=== PATIENT | male | born 1985 | race Caucasian/White ===

== ENCOUNTER 2020-11-23 10:09 | Outpatient (REF) | payer OTHER, SELFPAY | END 2020-11-23 10:10 | disposition home or self-care (01) | LOC: HO.BBR 10:09 | PROVIDERS: Visit Provider Internal Medicine Hematology | DX: Z13.89 Encounter for screening for other disorder (principal) ==

== ENCOUNTER 2020-12-28 14:52 | Outpatient (REF) | payer OTHER, SELFPAY | END 2020-12-28 14:53 | disposition home or self-care (01) | LOC: HO.BBR 14:52 | PROVIDERS: Visit Provider Internal Medicine Hematology | DX: Z13.89 Encounter for screening for other disorder (principal) ==

== ENCOUNTER 2021-02-08 08:51 | Outpatient (REF) | payer OTHER, SELFPAY | END 2021-02-08 08:52 | disposition home or self-care (01) | LOC: HO.BBR 08:51 | PROVIDERS: Visit Provider Internal Medicine Hematology | DX: Z13.89 Encounter for screening for other disorder (principal) ==

== ENCOUNTER 2022-05-07 11:02 | Outpatient (REF) | payer OTHER, SELFPAY | END 2022-05-07 11:03 | disposition home or self-care (01) | LOC: HO.BBR 11:02 | PROVIDERS: Visit Provider Internal Medicine Hematology | DX: Z13.89 Encounter for screening for other disorder (principal) ==

== ENCOUNTER 2022-06-13 09:51 | Outpatient (REF) | payer OTHER, SELFPAY | END 2022-06-13 09:52 | disposition home or self-care (01) | LOC: HO.BBR 09:51 | PROVIDERS: Visit Provider Internal Medicine Hematology | DX: Z13.89 Encounter for screening for other disorder (principal) ==

== ENCOUNTER 2022-07-14 09:46 | Outpatient (REF) | payer OTHER, SELFPAY | END 2022-07-14 09:47 | disposition home or self-care (01) | LOC: HO.BBR 09:46 | PROVIDERS: Visit Provider Internal Medicine Hematology | DX: Z13.89 Encounter for screening for other disorder (principal) ==

== ENCOUNTER 2022-08-15 09:51 | Outpatient (REF) | payer OTHER, SELFPAY | END 2022-08-15 09:52 | disposition home or self-care (01) | LOC: HO.BBR 09:51 | PROVIDERS: Visit Provider Internal Medicine Hematology | DX: Z13.89 Encounter for screening for other disorder (principal) ==

== ENCOUNTER 2022-09-19 09:57 | Outpatient (REF) | payer OTHER, SELFPAY | END 2022-09-19 09:58 | disposition home or self-care (01) | LOC: HO.BBR 09:57 | PROVIDERS: Visit Provider Internal Medicine Hematology | DX: Z13.89 Encounter for screening for other disorder (principal) ==

== ENCOUNTER 2022-10-24 08:55 | Outpatient (REF) | payer OTHER, SELFPAY | END 2022-10-24 08:56 | disposition home or self-care (01) | LOC: HO.BBR 08:55 | PROVIDERS: Visit Provider Internal Medicine Hematology | DX: Z13.89 Encounter for screening for other disorder (principal) ==

== ENCOUNTER 2022-11-21 08:53 | Outpatient (REF) | payer OTHER, SELFPAY | END 2022-11-21 08:54 | disposition home or self-care (01) | LOC: HO.BBR 08:53 | PROVIDERS: Visit Provider Internal Medicine Hematology | DX: Z13.89 Encounter for screening for other disorder (principal) ==

== ENCOUNTER 2022-12-26 09:52 | Outpatient (REF) | payer OTHER, SELFPAY | END 2022-12-26 09:53 | disposition home or self-care (01) | LOC: HO.BBR 09:52 | PROVIDERS: Visit Provider Internal Medicine Hematology | DX: Z13.89 Encounter for screening for other disorder (principal) ==

== ENCOUNTER 2023-01-30 11:56 | Outpatient (REF) | payer OTHER, SELFPAY | END 2023-01-30 11:57 | disposition home or self-care (01) | LOC: HO.BBR 11:56 | PROVIDERS: Visit Provider Internal Medicine Hematology | DX: Z13.89 Encounter for screening for other disorder (principal) ==

== ENCOUNTER 2023-03-06 10:10 | Outpatient (REF) | payer OTHER, SELFPAY | END 2023-03-06 10:11 | disposition home or self-care (01) | LOC: HO.BBR 10:10 | PROVIDERS: Visit Provider Internal Medicine Hematology | DX: Z13.89 Encounter for screening for other disorder (principal) ==

== ENCOUNTER 2023-04-03 09:54 | Outpatient (REF) | payer OTHER, SELFPAY | END 2023-04-03 09:55 | disposition home or self-care (01) | LOC: HO.BBR 09:54 | PROVIDERS: Visit Provider Internal Medicine Hematology | DX: Z13.89 Encounter for screening for other disorder (principal) ==

== ENCOUNTER 2023-05-15 10:40 | Outpatient (REF) | payer OTHER, SELFPAY | END 2023-05-15 10:41 | disposition home or self-care (01) | LOC: HO.BBR 10:40 | PROVIDERS: Visit Provider Internal Medicine Hematology | DX: Z13.89 Encounter for screening for other disorder (principal) ==

== ENCOUNTER 2023-06-19 13:06 | Outpatient (REF) | payer OTHER, SELFPAY | END 2023-06-19 13:07 | disposition home or self-care (01) | LOC: HO.BBR 13:06 | PROVIDERS: Visit Provider Internal Medicine Hematology | DX: Z13.89 Encounter for screening for other disorder (principal) ==

== ENCOUNTER 2023-09-18 10:03 | Outpatient (REF) | payer OTHER, SELFPAY | END 2023-09-18 10:04 | disposition home or self-care (01) | LOC: HO.BBR 10:03 | PROVIDERS: Visit Provider Internal Medicine Hematology | DX: Z13.89 Encounter for screening for other disorder (principal) ==

== ENCOUNTER 2023-12-25 09:52 | Outpatient (REF) | payer OTHER, SELFPAY | END 2023-12-25 09:53 | disposition home or self-care (01) | LOC: HO.BBR 09:52 | PROVIDERS: Visit Provider Internal Medicine Hematology | DX: Z13.89 Encounter for screening for other disorder (principal) ==

== ENCOUNTER 2024-03-25 09:58 | Outpatient (REF) | payer OTHER, SELFPAY | END 2024-03-25 09:59 | disposition home or self-care (01) | LOC: HO.BBR 09:58 | PROVIDERS: Visit Provider Internal Medicine Hematology | DX: Z13.89 Encounter for screening for other disorder (principal) ==

== ENCOUNTER 2024-10-14 09:59 | Outpatient (REF) | payer OTHER, SELFPAY | END 2024-10-14 10:00 | disposition home or self-care (01) | LOC: HO.BBR 09:59 | PROVIDERS: PCP Internal Medicine Sports Medicine; Visit Provider Internal Medicine Hematology | DX: Z13.89 Encounter for screening for other disorder (principal) ==

== ENCOUNTER 2025-04-14 09:51 | Outpatient (REF) | payer OTHER, SELFPAY | END 2025-04-14 09:52 | disposition home or self-care (01) | LOC: HO.BBR 09:51 | PROVIDERS: PCP Internal Medicine Sports Medicine; Visit Provider Internal Medicine Hematology | DX: Z13.89 Encounter for screening for other disorder (principal) ==